=== PATIENT | male | born 1980 | race Caucasian/White ===

== ENCOUNTER → 2019-12-12 | Outpatient (CLI) | payer OTHER ==
--- NOTE | 2019-12-12 10:28 | 2DMMODE ---
[facility] [address] [place] [address] 2 D/M-MODE ECHOCARDIOGRAM Name: IVAN GORDON Room #: EFREN TODD Reyes#: [id number] Admission: 12/12/19 Attend Phys: [facility] - Family physician Discharge: Date of : 78 Report #: [id number] REPORT FOR: cc: [facility] - Family physician unknown [facility] - Family physician unknown Carmelo Sandoval MD ~ APPROVED REPORT Study performed: 12/12/2019 09:59:22 EXAM: Comprehensive 2D, Doppler, and color-flow Echocardiogram Patient Location: Out-Patient Room #: Echo lab 2 Status: routine BSA: 2.24 HR: 83 bpm BP: 122/86 mmHg Rhythm: NSR Other Information Study Quality: Good Indications CAD 2D Dimensions RVDd: 40.50 mm IVSd: 11.43 (7-11mm) LVOT Diam: 22.27 (18-24mm) LVDd: 45.95 mm PWd: 11.38 (7-11mm) LVDs: 31.28 (25-40mm) Aortic Root: 33.29 mm IVC: 19.00 mm Volumes Left Atrial Volume (Systole) Single Plane 4CH: 26.04 mL Single Plane 2CH: 24.57 mL LA ESV Index: 13.00 mL/m2 Aortic Valve AoV Peak Everett.: 1.00 m/s AO Peak Gr.: 3.99 mmHg LVOT Max P.38 mmHg LVOT Max V: 0.92 m/s SERGO Vmax: 3.58 cm2 [facility] [address] [address] 2 D/M-MODE ECHOCARDIOGRAM Name: IVAN GORDON Room #: REG [facility]#: [id number] Admission: 12/12/19 Attend Phys: [facility] - Family physi Discharge: Date of : 78 Report #: [id number] Mitral Valve E/A Ratio: 1.2 MV Decel. Time: 244.89 ms MV E Max Everett.: 0.63 m/s MV A Everett.: 0.54 m/s MV PHT: 71.02 ms IVRT: 92.27 ms Pulmonary Valve PV Peak Everett.: 0.88 m/s PV Peak Gr.: 3.10 mmHg Pulmonary Vein P Vein S: 0.44 m/s P Vein A: 0.24 m/s P Vein D: 0.38 m/s P Vein A Dur.: 87.7 msec P Vein S/D Ratio: 1.16 Left Ventricle The left ventricle is normal size. There is normal LV segmental wall motion. There is normal left ventricular wall thickness. Left ventricular systolic function is normal. The left ventricular ejection fraction is within the normal range. LVEF is 55-60%. The left ventricular diastolic function is normal. Right Ventricle The right ventricle is normal size. The right ventricular systolic function is normal. Atria The left atrium size is normal. The right atrium size is normal. Aortic Valve The aortic valve is normal in structure. No aortic regurgitation is present. There is no aortic valvular stenosis. Mitral Valve The mitral valve is normal in structure. There is no mitral valve regurgitation noted. No evidence of mitral valve stenosis. Tricuspid Valve The tricuspid valve is normal in structure. There is no tricuspid valve regurgitation noted. Pulmonic Valve The pulmonary valve is normal in structure. There is no pulmonic valvular regurgitation. [facility] [place] [address] 2 D/M-MODE ECHOCARDIOGRAM Name: IVAN GORDON Room #: [facility] Eric#: [id number] Admission: 12/12/19 Attend Phys: [facility] - Family physi Discharge: Date of : 78 Report #: [id number] Great Vessels The aortic root is normal in size. IVC is normal in size and collapses >50% with inspiration. Pericardium There is no pericardial effusion. <Conclusion> The left ventricle is normal size. LVEF is 55-60%. The aortic valve is normal in structure. The mitral valve is normal in structure. The tricuspid valve is normal in structure. The pulmonary valve is normal in structure. There is no pericardial effusion. <ELECTRONICALLY SIGNED> By: Carmelo Sandoval MD 12/12/19 1027 1027 1027 Carmelo Sandoval MD /INF
== END ==
LOC: CV 09:47
DX: I25.10 Atherosclerotic heart disease of native coronary artery without angina pectoris (principal)